=== PATIENT | female | born 1950 | race Caucasian/White ===

== ENCOUNTER 2019-03-11 11:36 | Emergency (ER) | payer MEDICARE ==
[~2019-03-11] VITALS: Ht 165.1 cm; Wt 75.7 kg
--- NOTE | 2019-03-11 11:40 | NUR ---
Patient to ER bed 05 to gown for evaluation. Side rails up.
[2019-03-11 11:42] VITALS: BP_SYST 138
--- NOTE | 2019-03-11 11:42 | NUR ---
Pt brought by self, A&Ox4, pt presents to ER with dogbite on R hand/ scratches noted on teodora upper extremities, skin pink and warm, cap refill <3, VSS.
--- NOTE | 2019-03-11 12:02 | NUR ---
ER Dr. BARROSO at bedside examining patient.
[2019-03-11] MEDS ORDERED: BACITRACIN 1 GM OINT TP ONE (12:15)
[2019-03-11] MEDS ORDERED: DIPH-TET-PERTUS Vaccine 0.5 ML VIAL (ADACEL) I.M. ONE (12:15)
[2019-03-11 12:31] VITALS: BP_SYST 138
--- NOTE | 2019-03-11 12:31 | NUR ---
Patient given written and verbal discharge instructions and verbalizes understanding. ER MD discussed with patient the results and treatment provided. Patient in stable condition. ID arm band removed. Rx of TYLENOL, NEOSPORIN, AND AGUMENTIN given. Patient educated on pain management and to follow up with PMD. Pain Scale 2/10 TOLERABLE. Opportunity for questions provided and answered. Medication side effect fact sheet provided.
== END 2019-03-11 12:31 | disposition home or self-care (01) ==
LOC: SED 11:36
DX: S51.851A Open bite of right forearm, initial encounter (principal); S61.451A Open bite of right hand, initial encounter; F32.9 Major depressive disorder, single episode, unspecified; Z90.49 Acquired absence of other specified parts of digestive tract; Z90.710 Acquired absence of both cervix and uterus; Z90.89 Acquired absence of other organs; Z98.51 Tubal ligation status; Z88.0 Allergy status to penicillin; Z96.652 Presence of left artificial knee joint; W54.0XXA Bitten by dog, initial encounter; Y93.89 Activity, other specified; Y92.89 Other specified places as the place of occurrence of the external cause; Y99.8 Other external cause status
CPT/HCPCS: 90715; 99283

== ENCOUNTER 2020-01-18 07:08 | Emergency (ER) | payer MEDICARE ==
[~2020-01-18] VITALS: Ht 165.1 cm; Wt 72.6 kg
[2020-01-18 07:08] VITALS: BP_SYST 146
[2020-01-18 07:55] VITALS: BP_SYST 146
== END 2020-01-18 07:51 | disposition home or self-care (01) ==
LOC: SED 07:08
DX: H10.89 Other conjunctivitis (principal); Z88.0 Allergy status to penicillin
CPT/HCPCS: 99283

== ENCOUNTER 2020-01-30 16:51 | Emergency (ER) | payer MEDICARE ==
[~2020-01-30] VITALS: Ht 165.1 cm; Wt 72.6 kg
[2020-01-30] MEDS ORDERED: VENL37.578 PO (17:13)
[2020-01-30] MEDS ORDERED: FURO-150 PO (17:13)
[2020-01-30 17:14] VITALS: BP_SYST 144
[2020-01-30] MEDS ORDERED: FAMO40TA71 PO (17:14)
[2020-01-30] MEDS ORDERED: POTA8TAB57 PO (17:14)
--- NOTE | 2020-01-30 17:19 | NUR ---
PATIENT RETURNED TO ER WAITING AREA PENDING BED AVAILABILITY
[2020-01-30] MEDS ORDERED: FLUORESCEIN SODIUM 1 MG OPHTHALMIC STRIP OP ONE (18:30)
[2020-01-30] MEDS ORDERED: TETRACAINE HCL/PF 0.5% OPHTHALMIC DROPS 4 ML OP ONE (18:30)
[2020-01-30 19:36] VITALS: BP_SYST 144
--- NOTE | 2020-01-30 19:40 | NUR ---
EXAM BY IMMANUEL IN TRIAGE AREA; PREPARATIONS TO DISCHARGE Addendum: 01/30/20 at 1999 by LORA EVALUATION BY IMMANUEL [id number]
--- NOTE | 2020-01-30 19:40 | NUR ---
Patient given written and verbal discharge instructions and verbalizes understanding. ER MD discussed with patient the results and treatment provided. Patient in stable condition. ID arm band removed. IV catheter removed intact and dressing applied, no active bleeding. Rx of VIGAMOX, TYLENOL #3 given. Patient educated on pain management and to follow up with PMD. Pain Scale . Opportunity for questions provided and answered. Medication side effect fact sheet provided. FOLLOW UP OPTHALMOLOGY TATY IN AM
== END 2020-01-30 19:40 | disposition home or self-care (01) ==
LOC: SED 16:51
DX: H20.9 Unspecified iridocyclitis (principal); Z88.0 Allergy status to penicillin; Z79.899 Other long term (current) drug therapy
CPT/HCPCS: 99283